=== PATIENT | female | born 1945 | race Caucasian/White ===

== ENCOUNTER 2020-05-25 15:28 | Inpatient (IN) | payer MEDICARE, OTHER ==
[~2020-05-25] VITALS: Ht 167.6 cm; Wt 102.0 kg
[2020-05-25 16:41] LABS: Basophils # (auto) 0.1 10 ^3/uL (0-0.2); Eosinophils # (auto) 0.1 10 ^3/uL (0-0.8); Eosinophils % (auto) 1.3 % (0.0-7.0); Hemoglobin 13.9 g/dL (12.2-16.2); Lymphocytes # (auto) 0.8 10 ^3/uL (0.4-5.4); Lymphocytes % (auto) 20.2 % (10.0-50.0); Mean Corpuscular Hemoglobin 30.8 pg (28.0-32.0); Mean Corpuscular Hgb Conc. 32.4 g/dL (32.0-36.0); Mean Corpuscular Volume 95.1 fL (80.0-100.0); Monocytes # (auto) 0.4 10 ^3/uL (0-1.3); Monocytes % (auto) 10.7 % (0.0-12.0); Neutrophils # (auto) 2.7 10 ^3/uL (1.6-8.6); Neutrophils % (auto) 65.8 % (37.0-80.0); Nucleated Red Blood Cells % 0.1 %; Platelet Count (auto) 153 10^3/uL (140-450); Red Blood Cells 4.52 10^6/uL (4.0-5.20); Red Cell Distribution Width 13.1 % (11.8-14.3); White Blood Cell 4.1 10^3/uL (4.4-10.8)
[2020-05-25 17:02] LABS: Albumin 3.4 g/dL (3.4-5.0); Magnesium 1.9 mg/dL (1.6-2.6); Potassium 3.8 mmol/L (3.5-5.1)
[2020-05-25 17:06] LABS: Calcium 8.6 mg/dL (8.5-10.1)
[2020-05-25 17:09] LABS: Bilirubin, Total 0.3 mg/dL (0.2-1.0); Total Protein 6.4 g/dL (6.4-8.2)
[2020-05-25] MEDS ORDERED: ENOXAPARIN SOD 100 MG/1 ML SYRINGE SC ONE (18:30)
[2020-05-25 18:47] LABS: INR 0.96 (0.9-1.15); Partial Thromboplastin Time 26.5 sec (23.0-31.2)
[2020-05-25 19:09] LABS: Urine Bacteria FEW /hpf (None Seen); Urine Blood Negative /uL (Negative); Urine Mucus FEW (None Seen); Urine Specific Gravity 1.008 (1.001-1.035); Urine WBC 12 /hpf (0 - 5)
[2020-05-25] MEDS ORDERED: ACETAMINOPHEN 325 MG TAB PO PRN (20:45)
[2020-05-25] MEDS ORDERED: ONDANSETRON HCL 4 MG/2 ML VIAL IV PRN (20:45)
[2020-05-25] MEDS ORDERED: NITROGLYCERIN 0.4 MG SL TAB SL PRN (20:45)
[2020-05-25] MEDS ORDERED: METOPROLOL TARTRATE 1MG/1ML-5ML VIAL IV PRN (20:45)
[2020-05-25] MEDS ORDERED: MORPHINE SULF INJ 2 MG/ML SYRINGE 1ML IV PRN (20:45)
[2020-05-25] MEDS: SODIUM CHLORIDE 0.9% 1,000 ML IV SCH (21:39)
[2020-05-25] MEDS: CARVEDILOL 3.125 MG TAB PO SCH (22:00)
[2020-05-25] MEDS: ATORVASTATIN 20 MG TAB PO SCH (22:00)
[2020-05-25 22:10] VITALS: BP 131/70
[2020-05-26 04:17] VITALS: BP 131/70
[2020-05-26 05:00] VITALS: BP 135/77
[2020-05-26] MEDS ORDERED: LEVO25TA6 PO (05:19)
[2020-05-26] MEDS ORDERED: [UNRECOGNIZED DRUG - CODE] (05:19)
[2020-05-26] MEDS ORDERED: PANT1INJ3 IV (05:19)
[2020-05-26] MEDS ORDERED: PROP80CA40 PO (05:19)
[2020-05-26] MEDS ORDERED: MONT10TA34 PO (05:19)
[2020-05-26] MEDS ORDERED: MELO1TAB56 PO (05:19)
[2020-05-26] MEDS ORDERED: GABA100C9 PO (05:19)
[2020-05-26] MEDS ORDERED: LIFI1DRO OP (05:19)
[2020-05-26] MEDS: ENOXAPARIN SOD 100 MG/1 ML SYRINGE SC SCH ×2 (06:22→17:35)
[2020-05-26 06:48] LABS: Basophils # (auto) 0.1 10 ^3/uL (0-0.2); Basophils % (auto) 2.3 % (0.0-2.0); Eosinophils # (auto) 0.1 10 ^3/uL (0-0.8); Eosinophils % (auto) 1.4 % (0.0-7.0); Hematocrit 42.7 % (36.0-46.0); Hemoglobin 13.9 g/dL (12.2-16.2); Lymphocytes % (auto) 23.3 % (10.0-50.0); Mean Corpuscular Hemoglobin 30.8 pg (28.0-32.0); Mean Corpuscular Hgb Conc. 32.4 g/dL (32.0-36.0); Mean Corpuscular Volume 94.8 fL (80.0-100.0); Monocytes # (auto) 0.4 10 ^3/uL (0-1.3); Monocytes % (auto) 9.4 % (0.0-12.0); Neutrophils # (auto) 2.8 10 ^3/uL (1.6-8.6); Neutrophils % (auto) 63.6 % (37.0-80.0); Nucleated Red Blood Cells % 0.1 %; Platelet Count (auto) 159 10^3/uL (140-450); Red Blood Cells 4.51 10^6/uL (4.0-5.20); Red Cell Distribution Width 13.2 % (11.8-14.3); White Blood Cell 4.4 10^3/uL (4.4-10.8)
[2020-05-26 07:09] LABS: Potassium 3.6 mmol/L (3.5-5.1)
[2020-05-26 07:31] LABS: BUN/Creatinine Ratio 21.6; Calcium 8.6 mg/dL (8.5-10.1)
[2020-05-26 08:00] VITALS: BP 122/67
[2020-05-26] MEDS: SODIUM CHLORIDE 0.9% 1,000 ML IV SCH ×2 (09:26→23:15)
[2020-05-26] MEDS: ASPirin 81 mg TAB PO SCH (09:26)
[2020-05-26] MEDS: CARVEDILOL 3.125 MG TAB PO SCH ×2 (09:27→22:01)
[2020-05-26] MEDS: CLOPIDOGREL BISULFATE 75 MG TAB PO SCH (09:27)
[2020-05-26] MEDS: DOCUSATE SOD 100 MG CAP PO SCH (09:27)
[2020-05-26] MEDS: LISINOPRIL 10 MG TAB PO SCH (09:27)
[2020-05-26 12:00] VITALS: BP 117/66
[2020-05-26] MEDS ORDERED: ZOLMITRIPTAN 2.5 MG PO ONE (13:45)
[2020-05-26 17:00] VITALS: BP 143/82
[2020-05-26 22:00] VITALS: BP 151/84
[2020-05-26] MEDS: ATORVASTATIN 20 MG TAB PO SCH (22:00)
[2020-05-26] MEDS: CIPROFLOXACIN HCL 500 MG TAB PO SCH (22:01)
[2020-05-27 05:00] VITALS: BP 136/83
[2020-05-27] MEDS: ENOXAPARIN SOD 100 MG/1 ML SYRINGE SC SCH ×2 (05:23→17:44)
[2020-05-27 05:47] LABS: Basophils # (auto) 0 10 ^3/uL (0-0.2); Eosinophils # (auto) 0 10 ^3/uL (0-0.8); Eosinophils % (auto) 0.9 % (0.0-7.0); Hematocrit 41.7 % (36.0-46.0); Hemoglobin 13.8 g/dL (12.2-16.2); Lymphocytes % (auto) 20.7 % (10.0-50.0); Mean Corpuscular Hemoglobin 31.3 pg (28.0-32.0); Mean Corpuscular Hgb Conc. 33.2 g/dL (32.0-36.0); Mean Corpuscular Volume 94.4 fL (80.0-100.0); Monocytes # (auto) 0.5 10 ^3/uL (0-1.3); Monocytes % (auto) 10.5 % (0.0-12.0); Neutrophils # (auto) 3.1 10 ^3/uL (1.6-8.6); Neutrophils % (auto) 66.9 % (37.0-80.0); Nucleated Red Blood Cells % 0.1 %; Platelet Count (auto) 144 10^3/uL (140-450); Red Blood Cells 4.42 10^6/uL (4.0-5.20); Red Cell Distribution Width 13.1 % (11.8-14.3); White Blood Cell 4.7 10^3/uL (4.4-10.8)
[2020-05-27 06:08] LABS: Calcium 8.7 mg/dL (8.5-10.1); Potassium 3.5 mmol/L (3.5-5.1)
[2020-05-27 06:17] LABS: BUN/Creatinine Ratio 19.6
[2020-05-27 09:00] VITALS: BP 142/85
[2020-05-27] MEDS: CLOPIDOGREL BISULFATE 75 MG TAB PO SCH (10:00)
[2020-05-27] MEDS: CARVEDILOL 3.125 MG TAB PO SCH ×2 (10:00→22:00)
[2020-05-27] MEDS: ASPirin 81 mg TAB PO SCH (10:11)
[2020-05-27] MEDS: CIPROFLOXACIN HCL 500 MG TAB PO SCH ×2 (10:11→22:07)
[2020-05-27] MEDS: DOCUSATE SOD 100 MG CAP PO SCH (10:12)
[2020-05-27] MEDS: LISINOPRIL 10 MG TAB PO SCH (10:12)
[2020-05-27] MEDS ORDERED: LIDOCAINE W/ EPINEPHRINE 2% INJ 20ML VIAL ONE (11:54)
[2020-05-27] MEDS ORDERED: fentaNYL CITRATE 100 MCG/2 ML VL ONE (11:55)
[2020-05-27] MEDS ORDERED: ANGIOMAX 250 MG VIAL IV ONE (11:55)
[2020-05-27] MEDS ORDERED: MIDAZOLAM HCL 1MG/1ML-2 ML VIAL ONE (11:55)
[2020-05-27] MEDS ORDERED: SODIUM CHL 0.9% 0 ML ONE (11:56)
[2020-05-27] MEDS ORDERED: LIDOCAINE 2%HCL (LOCAL ANESTH.) INJ 20ML MDV ONE (11:57)
[2020-05-27] MEDS ORDERED: IODIXANOL 320MG/ML 100ML BTL IV ONE (12:03)
[2020-05-27] MEDS: SODIUM CHLORIDE 0.9% 1,000 ML IV SCH (12:35)
[2020-05-27] MEDS ORDERED: diphenhdrAMINE HCL 50 MG/1 ML VL ONE (13:27)
[2020-05-27 16:37] VITALS: BP 146/90
[2020-05-27] MEDS: ATORVASTATIN 20 MG TAB PO SCH (22:00)
[2020-05-27 23:16] VITALS: BP 100/57
[2020-05-28] MEDS: SODIUM CHLORIDE 0.9% 1,000 ML IV SCH (01:24)
[2020-05-28 05:27] VITALS: BP 148/77
[2020-05-28] MEDS: ENOXAPARIN SOD 100 MG/1 ML SYRINGE SC SCH (05:36)
[2020-05-28 06:29] LABS: Basophils # (auto) 0.1 10 ^3/uL (0-0.2); Eosinophils # (auto) 0.1 10 ^3/uL (0-0.8); Eosinophils % (auto) 1.2 % (0.0-7.0); Hemoglobin 13.6 g/dL (12.2-16.2); Lymphocytes # (auto) 0.9 10 ^3/uL (0.4-5.4); Lymphocytes % (auto) 18.5 % (10.0-50.0); Mean Corpuscular Volume 94.3 fL (80.0-100.0); Monocytes # (auto) 0.5 10 ^3/uL (0-1.3); Monocytes % (auto) 10.8 % (0.0-12.0); Neutrophils # (auto) 3.2 10 ^3/uL (1.6-8.6); Neutrophils % (auto) 67.5 % (37.0-80.0); Platelet Count (auto) 130 10^3/uL (140-450); Red Blood Cells 4.25 10^6/uL (4.0-5.20); Red Cell Distribution Width 13.1 % (11.8-14.3); White Blood Cell 4.8 10^3/uL (4.4-10.8)
[2020-05-28 06:43] LABS: BUN/Creatinine Ratio 21.3; Calcium 8.7 mg/dL (8.5-10.1); Potassium 3.6 mmol/L (3.5-5.1)
[2020-05-28 09:00] VITALS: BP 134/79
[2020-05-28] MEDS: DOCUSATE SOD 100 MG CAP PO SCH (10:00)
[2020-05-28] MEDS: LISINOPRIL 10 MG TAB PO SCH (10:00)
[2020-05-28] MEDS: ASPirin 81 mg TAB PO SCH (10:00)
[2020-05-28] MEDS: CARVEDILOL 3.125 MG TAB PO SCH (10:00)
[2020-05-28] MEDS: CLOPIDOGREL BISULFATE 75 MG TAB PO SCH (10:00)
[2020-05-28] MEDS: CIPROFLOXACIN HCL 500 MG TAB PO SCH (10:00)
[2020-05-28 13:00] VITALS: BP 134/84
[2020-05-28 14:09] VITALS: BP 134/79
== END 2020-05-28 15:00 | disposition home or self-care (01) | DRG 282 ==
LOC: ER 15:28 → TELE 15:29 → TELE-CENTR 22:10
PROVIDERS: ADMIT Hospitalist; ATTEND Internal Medicine
PROC: 4A023N7 Measurement of Cardiac Sampling and Pressure, Left Heart, Percutaneous Approach (ICD-10-PCS; principal; 2020-05-27)
PROC: B211YZZ Fluoroscopy of Multiple Coronary Arteries using Other Contrast (ICD-10-PCS; 2020-05-27)
PROC: B215YZZ Fluoroscopy of Left Heart using Other Contrast (ICD-10-PCS; 2020-05-27)
DX: I21.4 Non-ST elevation (NSTEMI) myocardial infarction (principal); I10 Essential (primary) hypertension; E78.5 Hyperlipidemia, unspecified; I25.10 Atherosclerotic heart disease of native coronary artery without angina pectoris; J44.9 Chronic obstructive pulmonary disease, unspecified; G43.909 Migraine, unspecified, not intractable, without status migrainosus; I73.9 Peripheral vascular disease, unspecified; E78.00 Pure hypercholesterolemia, unspecified; E66.01 Morbid (severe) obesity due to excess calories; E03.9 Hypothyroidism, unspecified; I25.2 Old myocardial infarction; Z88.0 Allergy status to penicillin; Z90.49 Acquired absence of other specified parts of digestive tract; Z68.36 Body mass index [BMI] 36.0-36.9, adult; Z79.899 Other long term (current) drug therapy
CPT/HCPCS: 36415; 71045; 80048; 80053; 80061; 81001; 83735; 83880; 84443; 84484; 85025; 85379; 85610; 85730; 87086; 93005; 99152; 99153; G0378; J2250; Q9967

== ENCOUNTER 2021-07-09 06:53 | Emergency (ER) | payer MEDICARE, OTHER ==
[~2021-07-09] VITALS: Ht 167.6 cm; Wt 99.8 kg
[~2021-07-09 06:53] MED LIST: GABA100C9 PO; LEVO25TA6 PO; LIFI5DRO2 OP; MELO1TAB56 PO; MONT-8 PO; PANT1INJ3 IV; PROP80CA40 PO; [UNRECOGNIZED DRUG - CODE]
[2021-07-09 08:26] LABS: Basophils # (auto) 0.1 10 ^3/uL (0-0.2); Basophils % (auto) 0.5 % (0.0-2.0); Eosinophils # (auto) 0.1 10 ^3/uL (0-0.8); Eosinophils % (auto) 0.6 % (0.0-7.0); Hemoglobin 15.2 g/dL (12.2-16.2); Lymphocytes # (auto) 1.1 10 ^3/uL (0.4-5.4); Lymphocytes % (auto) 9.8 % (10.0-50.0); Mean Corpuscular Hemoglobin 30.1 pg (28.0-32.0); Mean Corpuscular Hgb Conc. 33.7 g/dL (32.0-36.0); Mean Corpuscular Volume 89.5 fL (80.0-100.0); Monocytes # (auto) 0.8 10 ^3/uL (0-1.3); Monocytes % (auto) 6.7 % (0.0-12.0); Neutrophils # (auto) 9.4 10 ^3/uL (1.6-8.6); Neutrophils % (auto) 82.4 % (37.0-80.0); Red Blood Cells 5.03 10^6/uL (4.0-5.20); Red Cell Distribution Width 14.3 % (11.8-14.3); White Blood Cell 11.4 10^3/uL (4.4-10.8)
[2021-07-09 08:27] LABS: Urine Bacteria FEW /hpf (None Seen); Urine Blood 3+ /uL (Negative); Urine Specific Gravity 1.007 (1.001-1.035); Urine WBC 1 /hpf (0 - 5)
[2021-07-09] MEDS ORDERED: SODIUM CHLORIDE 0.9% 1,000 ML IV ONE ×2 (08:30)
[2021-07-09] MEDS ORDERED: KETOROLAC TROMETH 30 MG/ML 1ML VIAL IV ONE (08:30)
[2021-07-09 08:39] LABS: Albumin 3.5 g/dL (3.4-5.0); Calcium 9.1 mg/dL (8.5-10.1); Potassium 4.9 mmol/L (3.5-5.1)
[2021-07-09 08:42] LABS: BUN/Creatinine Ratio 29.3
[2021-07-09 08:44] LABS: Bilirubin, Total 0.5 mg/dL (0.2-1.0)
[2021-07-09 09:19] VITALS: BP 170/92
[2021-07-09] MEDS ORDERED: HYDROcodone-ACET 10/325MG TAB PO ONE (09:45)
== END 2021-07-09 11:08 | disposition home or self-care (01) ==
LOC: ER 06:53
DX: N20.0 Calculus of kidney (principal); Z90.49 Acquired absence of other specified parts of digestive tract; Z88.0 Allergy status to penicillin
CPT/HCPCS: 36415; 74176; 80053; 81001; 85025; 96360; 99284; J1885; J7030

== ENCOUNTER 2022-03-11 11:22 | Emergency (ER) | payer MEDICARE, OTHER ==
[~2022-03-11] VITALS: Ht 160 cm; Wt 99.8 kg
[2022-03-11 12:07] LABS: Basophils # (auto) 0.1 10 ^3/uL (0-0.2); Basophils % (auto) 0.6 % (0.0-2.0); Eosinophils # (auto) 0 10 ^3/uL (0-0.8); Eosinophils % (auto) 0.5 % (0.0-7.0); Hematocrit 41.4 % (36.0-46.0); Hemoglobin 13.2 g/dL (12.2-16.2); Lymphocytes # (auto) 0.9 10 ^3/uL (0.4-5.4); Lymphocytes % (auto) 9.9 % (10.0-50.0); Mean Corpuscular Hemoglobin 27.9 pg (28.0-32.0); Mean Corpuscular Hgb Conc. 31.8 g/dL (32.0-36.0); Mean Corpuscular Volume 87.7 fL (80.0-100.0); Monocytes # (auto) 0.5 10 ^3/uL (0-1.3); Neutrophils # (auto) 7.3 10 ^3/uL (1.6-8.6); Red Blood Cells 4.71 10^6/uL (4.0-5.20); Red Cell Distribution Width 15.1 % (11.8-14.3); White Blood Cell 8.7 10^3/uL (4.4-10.8)
[2022-03-11 12:23] LABS: Albumin 3.6 g/dL (3.4-5.0); BUN/Creatinine Ratio 26.2; Calcium 8.5 mg/dL (8.5-10.1)
[2022-03-11 12:25] LABS: Bilirubin, Total 0.4 mg/dL (0.2-1.0); Total Protein 6.5 g/dL (6.4-8.2)
[2022-03-11 15:22] VITALS: BP 145/79
[2022-03-11] MEDS ORDERED: HYDR-4902 PO (15:53)
== END 2022-03-11 16:11 | disposition home or self-care (01) ==
LOC: EDBD 11:22 → ER 11:22
DX: S90.32XA Contusion of left foot, initial encounter (principal); S90.31XA Contusion of right foot, initial encounter; Z88.0 Allergy status to penicillin; Z90.49 Acquired absence of other specified parts of digestive tract; Z90.710 Acquired absence of both cervix and uterus; W18.39XA Other fall on same level, initial encounter; Y93.01 Activity, walking, marching and hiking; Y92.89 Other specified places as the place of occurrence of the external cause; Y99.8 Other external cause status
CPT/HCPCS: 36415; 73620; 74176; 80053; 84484; 85025; 93005

== ENCOUNTER 2025-02-25 09:47 | Inpatient (IN) | payer MEDICARE, OTHER ==
[~2025-02-25] VITALS: Ht 165.1 cm; Wt 107.5 kg
[~2025-02-25 09:47] MED LIST changes: +GABA-1308 PO; -GABA100C9 PO; +HYDR-4902 PO; +MELO15TA29 PO; -MELO1TAB56 PO
[2025-02-25 10:49] LABS: Basophils # (auto) 0.1 10 ^3/uL (0-0.2); Eosinophils # (auto) 0.1 10 ^3/uL (0-0.8); Hemoglobin 12.2 g/dL (12.2-16.2); Monocytes # (auto) 0.4 10 ^3/uL (0-1.3)
[2025-02-25 10:51] LABS: Basophils % (auto) 2.3 % (0.0-2.0); Eosinophils % (auto) 1.7 % (0.0-7.0); Hematocrit 37.6 % (36.0-46.0); Lymphocytes # (auto) 0.9 10 ^3/uL (0.4-5.4); Lymphocytes % (auto) 20.9 % (10.0-50.0); Mean Corpuscular Hemoglobin 24.4 pg (28.0-32.0); Mean Corpuscular Hgb Conc. 32.4 g/dL (32.0-36.0); Mean Corpuscular Volume 75.2 fL (80.0-100.0); Neutrophils % (auto) 66.1 % (37.0-80.0); Nucleated Red Blood Cells % 0.1 %; Platelet Count (auto) 165 10^3/uL (140-450); Red Cell Distribution Width 18.8 % (11.8-14.3); White Blood Cell 4.5 10^3/uL (4.4-10.8)
[2025-02-25 10:54] LABS: Potassium 4.5 mmol/L (3.5-5.1); Sodium 145 mmol/L (136-145)
[2025-02-25 10:55] LABS: Anion Gap 8 (5-15); Carbon Dioxide 28 mmol/L (20-31)
[2025-02-25 10:56] LABS: Calcium 9.5 mg/dL (8.7-10.4)
[2025-02-25 11:00] LABS: BUN/Creatinine Ratio 16.4 (10.0-20.0); Blood Urea Nitrogen 11 mg/dL (9-23); Glucose 88 mg/dL (74-106)
[2025-02-25 11:01] LABS: Chloride 109 mmol/L (98-107)
--- NOTE | 2025-02-25 11:03 | ED.PDOC ---
History of Present Illness HPI Comments 79-year-old female presents to the ER with prior medical history of kidney stones, [place], thyroid; surgical history hernias repair, hysterectomy, cataract surgery, gastric bypass, right foot surgery and the chief complaint of flank pain. Patient reports on having right flank pain for one month was been worseni ng for the past three weeks. Patient notes the her urination is slow. Denies chills, fever, N/V/D, SOB, CP. No other associated symptoms, modifiers, recent injuries or sick contacts present at this time. Chief Complaint: Flank Pain Time Seen by MD: 10:25 Primary Care Provider: Chirag Reviewed Notes: Nurses Notes, Medications, Allergies Allergies: Coded Allergies: Penicillins (Verified Allergy, Unknown, 05/25/20) Home Meds Active Scripts Hydrocodone-Acetaminophen (Hydrocodone Bitartrate/AC 5-325 mg) 1 Tab Tab, 1 TAB PO Q6HP PRN for 5 Days, #20 TAB Prov:SIOMARA SAENZ MD 03/11/22 Reported Medications Zolmitriptan (Zomig) 2.5 Mg Spr, 2.5 MG NA, SPRAY 05/26/20 Lifitegrast (Xiidra) 5 % Maxim, 5 % OP BID, DROP 05/26/20 Montelukast Sodium (MONTELUKAST SODIUM) 10 Mg Tab, 1 TAB PO DAILY, #30 TAB 5 Refills 05/26/20 Levothyroxine Sodium (Levothyroxine Sodium) 25 Mcg Tab, 25 MCG PO QAM, MCG 05/26/20 Gabapentin (Gabapentin) 100 Mg Cap, 100 MG PO BID for 30 Days, MG 05/26/20 Meloxicam (Meloxicam) 15 Mg Tab, 1 TAB PO DAILY, #30 TAB 2 Refills 05/26/20 Pantoprazole Sodium (PANTOPRAZOLE SODIUM) 40 Mg Inj, 40 MG IV DAILY, INJ 05/26/20 Propranolol Hcl (Inderal La) 80 Mg Cap, 0.5 CAP PO DAILY, #90 CAP 1 Refill 05/26/20 Information Source: Patient Mode of Arrival: Ambulatory Severity: Moderate Timing: Weeks Duration: Since onset Prehospital treatment: None Past Medical History PAST MEDICAL HISTORY: Kidney Stones, [place], Thyroid Surgical History: Cholecystectomy, Hernia Repair, Hysterectomy Surgical History (Other): Cataracts surgery, gastric bypass, right foot surgery STEAM PRESS OPERATOR History: No Pertinent STEAM PRESS OPERATOR History Family History Family History: Reviewed,noncontributory to illness, Unknown Social History Smoker: Non-Smoker Alcohol: Denies ETOH Use Drugs: Denies Drug Use Lives In: Home Constitutional: denies: chills, diaphoresis, fatigue, fever, malaise, sweats, weakness, others EENTM: denies: blurred vision, double vision, ear bleeding, ear discharge, ear drainage, ear pain, ear ringing, eye pain, eye redness, hearing loss, mouth pain, mouth swelling, nasal discharge, nose bleeding, nose congestion, nose pain, photophobia, tearing, throat pain, throat swelling, voice changes, others Respiratory: denies: cough, hemoptysis, orthopnea, SOB at rest, shortness of breath, SOB with excertion, stridor, wheezing, others Cardiovascular: denies: chest pain, dizzy spells, diaphoresis, Dyspnea on exertion, edema, irregular heart beat, left arm pain, lightheadedness, palpitations, PND, syncope, others Gastrointestinal: denies: abdomen distended, abdominal pain, blood streaked bowels, constipated, diarrhea, dysphagia, difficulty swallowing, hematemesis, melena, nausea, poor appetite, poor fluid intake, rectal bleeding, rectal pain, vomiting, others Genitourinary: reports: flank pain; denies: abnormal vagina bleeding, burning, dyspareunia, dysuria, frequency, hematuria, incontinence, pain, , vagina discharge, urgency, others Neurological: denies: dizziness, fainting, headache, left sided numbness, left sided weakness, numbness, paresthesia, pre-existing deficit, right sided numbness, right sided weakness, seizure, speech problems, tingling, tremors, weakness, others Musculoskeletal: denies: back pain, gout, joint pain, joint swelling, muscle pain, muscle stiffness, neck pain, others Integumetry: denies: bruises, change in color, change in hair/nails, dryness, laceration, lesions, lumps, rash, wounds, others Allergic/Immunocompromised: denies: Difficulty Healing, Frequent Infections, Hives, Itching, others Hematologic/Lymphatic: denies: anemia, blood clots, easy bleeding, easy bruising, swollen glands, others Endocrine: denies: excessive hunger, excessive sweating, excessive thirst, excessive urination, flushing, intolerance to cold, intolerance to heat, un explained weight gain, unexplained weight loss, others Psychiatric: denies: anxiety, bipolar disorder, depression, hopeless, panic disorder, schizophrenia, sleepless, suicidal, others All Other Systems: Reviewed and Negative Physical Exam General Appearance: No Apparent Distress, Normal HEENT: Normal ENT Inspection, Pharynx Normal, TMs Normal Neck: Full Range of Motion, Non-Tender, Normal, Normal Inspection Respiratory: Chest Non-Tender, Lungs Clear, No Accessory Muscle Use, No Respiratory Distress, Normal Breath Sounds Cardiovascular: No Edema, No JVD, No Murmur, No Gallop, Normal Peripheral Pu lses, Regular Rate/Rhythm Breast Exam: Deferred Gastrointestinal: No Organomegaly, Non Tender, No Pulsatile Mass, Normal Bowel Sounds, Soft Genitalia: Deferred Pelvic: Deferred Rectal: Deferred Extremities: No calf tenderness, Normal capillary refill, Normal inspection, Normal range of motion, Non-tender, No pedal edema Musculoskeletal : Apperance: Normal Neurologic: Alert, electric crane operator II-XII nml as Tested, No Motor Deficits, Normal Affect, Normal Mood, No Sensory Deficits Cerebellar Function: Normal Reflexes: Normal Skin: Dry, Normal Color, Warm Lymphatic: No Adenopathy Was a procedure done? Was a procedure done?: No Differential Dx Considerations may include: Renal colic, viral syndrome, pyelonephritis, sciatica, X-Ray, Labs, Meds, VS Vital Signs Date Time Temp Pulse Resp B/P (MAP) Pulse Ox O2 Delivery O2 Flow Rate FiO2 02/25/25 11:50 98.7 73 18 154/94 (114) 96 98.7 02/25/25 09:50 99.3 82 16 130/95 (107) 96 99.3 02/25/25 09:50 99.3 82 16 130/95 (107) 96 99.3 Lab Test 02/25/25 10:25 02/25/25 10:00 Range/Units White Blood Count 4.5 4.4-10.8 10^3/uL Red Blood Count 5.00 4.0-5.20 10^6/uL Hemoglobin 12.2 12.2-16.2 g/dL Hematocrit 37.6 36.0-46.0 % Mean Corpuscular Volume 75.2 L 80.0-100.0 fL Mean Corpuscular Hemoglobin 24.4 L 28.0-32.0 pg Mean Corpuscular Hemoglobin Concent 32.4 32.0-36.0 g/dL Red Cell Distribution Width 18.8 H 11.8-14.3 % Platelet Count 165 140-450 10^3/uL Mean Platelet Volume 8.1 6.9-10.8 fL Neutrophils (%) (Auto) 66.1 37.0-80.0 % Lymphocytes (%) (Auto) 20.9 10.0-50.0 % Monocytes (%) (Auto) 9.0 0.0-12.0 % Eosinophils (%) (Auto) 1.7 0.0-7.0 % Basophils (%) (Auto) 2.3 H 0.0-2.0 % Neutrophils # (Auto) 3.0 1.6-8.6 10 ^3/uL Lymphocytes # (Auto) 0.9 0.4-5.4 10 ^3/uL Monocytes # (Auto) 0.4 0-1.3 10 ^3/uL Eosinophils # (Auto) 0.1 0-0.8 10 ^3/uL Basophils # (Auto) 0.1 0-0.2 10 ^3/uL Nucleated Red Blood Cells 0.1 % Sodium Level 145 136-145 mmol/L Potassium Level 4.5 3.5-5.1 mmol/L Chloride Level 109 H 98-107 mmol/L Carbon Dioxide Level 28 20-31 mmol/L Anion Gap 8 5-15 Blood Urea Nitrogen 11 9-23 mg/dL Creatinine 0.67 0.550-1.02 mg/dL Glomerular Filtration Rate Calc 90 >90 mL/min BUN/Creatinine Ratio 16.4 10.0-20.0 Serum Glucose 88 74-106 mg/dL Calcium Level 9.5 8.7-10.4 mg/dL Troponin I High Sensitivity < 3 L </=34 ng/L Urine Color Colorless Yellow Urine Clarity Clear Clear Urine pH 7.0 5.0-9.0 Urine Specific [place] 1.004 1.001-1.035 Urine Protein Negative Negative Urine Ketones Negative Negative Urine Blood Negative Negative /uL Urine Nitrite Negative Negative Urine Bilirubin Negative Negative Urine Urobilinogen Normal Negative mg/dL Urine Leukocyte Esterase Negative Negative /uL Urine RBC <1 0 - 4 /hpf Urine Microscopic WBC < 1 0-5 /HPF Urine Squamous Epithelial Cells None seen <5 /hpf Urine Bacteria Few H None Seen /hpf Urine Glucose Normal Normal mg/dL Time of 1ST Reevaluation: 10:55 Reevaluation 1ST: Unchanged Patient Education/Counseling: Diagnosis, Treatment, Prognosis Family Education/Counseling: No Family Present Departure 1 Departure Time of Disposition: 13:10 (Patient presented with abdominal pain that was concerning for possible appendicits, gastritis, cholecystitis, colitis, gastroenteritis, sbo, or orther possible surgical emergency. Data: 1. I ordered and reviewed the result of at least 3 labs including a CBC, BMP, and Urinalysis. 2. I independently interpreted the following tests: CT Abdoment and Pelvis is concerning for renal colic and possible liver malignancy.Risk:This patient has a high risk of morbidity due to further diagnostic testing or treatment and may suffer from an acute abdominal process disorder. Workup reveals renal colic and possible liver malignancy and patient should be admitted for further workup. and possible expert consultation. ) Impression: Primary Impression: Renal colic on right side Additional Impressions: Right flank pain Abnormal liver CT Intractable abdominal pain Disposition: ADMITTED INPATIENT Admit to: Med Surg Condition: Serious Critical Care Note Critical Care Time?: Yes Critical care comment: Intractable abdominal pain Authorized and Performed by: Armando Gardner MD Total critical care time: Approximately 37 minutes Due to a high probability of clinically significant, life threatening deterioration, the patient required my highest level of preparedness to intervene emergently and I personally spent this critical care time directly and personally managing the patient. This critical care time included obtaining a history; examining the patient; pulse oximetry; ordering and review of studies; arranging urgent treatment with development of a management plan; evaluation of patient's response to treatment; frequent reassessment; and, discussions with other providers. This critical care time was performed to assess and manage the high probability of imminent, life-threatening deterioration that could result in multi-organ failure. It was exclusive of separately billable procedures and treating other patients and teaching time. Please see my other sections and the rest of the note for further information on patient assessment and treatment. Stability Stability form required: No I personally scribed for ARMANDO GARDNER MD ([email or web address]) on 02/25/25 at 11:03. Electronically submitted by Sujit Perez ([email or web address]). ARMANDO GARDNER MD Feb 25, 2025 11:03
[2025-02-25 11:07] LABS: Urine Bacteria FEW /hpf (None Seen); Urine Blood Negative /uL (Negative); Urine Clarity Clear (Clear); Urine Color Colorless (Yellow); Urine Protein, UAD Negative (Negative); Urine Specific Gravity 1.004 (1.001-1.035); Urine Squamous Epithelial Cell None Seen /hpf (<5); Urine Urobilinogen Normal (Negative); Urine WBC < 1 /HPF (0-5)
--- NOTE | 2025-02-25 12:55 | DVH ---
Indication: right sided flank pain Technique: CT axial images of the abdomen and pelvis are obtained without contrast. Coronal and sagit chalo reformats were obtained. Comparison: 03/11/2022 FINDINGS: There is limited interpretation of the abdomen and pelvis without administration of intravenous contr ast. Lung bases demonstrate atelectasis. Adrenal glands, spleen and pancreas unremarkable in shape. Liver is demonstrating right hepatic lobe hypodense region measuring 2.7 cm. The bilateral kidneys demonstrate no hydronephrosis. Nonobstructing right renal calculi up to 2 mm. Nonobstructing left renal calculi up 4 mm. Postsurgical changes stomach / gastrojejunostomy. Stomach nondistended. Small bowel loops are sheridan l in caliber. Colonic diverticular disease. Moderate volume stool in the colon. No secondary signs fo r appendicitis. Atherosclerotic disease. Bladder partially distended. No free pelvic fluid. No inguinal lymphadenopa thy. Moderate to severe lumbar degenerative disc disease. Vertebroplasty changes at L1, L2. IMPRESSION: 1. Indeterminate right hepatic lobe hypodense lesion, 2.7 cm. Recommend multiphasic MRI abdomen in th e nonemergent setting to further characterize. 2. Bilateral nonobstructing renal calculi. Largest is in the left kidney measuring 4 mm. 3. Colonic diverticulosis. 4. Findings as described.
[2025-02-25] MEDS ORDERED: MORPHINE SULFATE INJ 2 MG/ml SYRG IV PRN ×2 (14:30→15:15)
[2025-02-25] MEDS ORDERED: ACETAMINOPHEN 325 MG TAB PO PRN (14:30)
[2025-02-25] MEDS ORDERED: hydrALAZINE HCL 20 MG/ML VL IV PRN (14:30)
[2025-02-25] MEDS ORDERED: ONDANSETRON HCL 4 MG/2 ML VIAL IV PRN (14:30)
[2025-02-25] MEDS ORDERED: DOCUSATE SOD 100 MG CAP PO PRN (14:30)
[2025-02-25] MEDS: ONDANSETRON HCL 4 MG/2 ML VIAL IV ONE (14:44)
[2025-02-25] MEDS: SODIUM CHLORIDE 0.9% 1,000 ML IV ONE (14:45)
[2025-02-25] MEDS: MORPHINE SULFATE 4 MG/ML SYR/VIAL IV ONE (14:45)
--- NOTE | 2025-02-25 15:04 | DVHHP2 ---
History of Present Illness Reason for Visit: Right flank pain History of Present Illness The patient is a 79 years old female with past medical history of kidney stones, [place], and thyroid disease who presented to [facility] with complaint of right flank pain for the past 1 month. Patient reports experiencing symptoms with decreased urine output for the past three weeks, intractable abdominal pain, getting worse today that prompted this visit. Patient was seen and evaluated in the ED, laboratory data shows WBC 4.5, platelets 165, sodium 145, potassium 4.5, BUN 11, creatinine 0.67, glucose 88, troponin 3, blood pressure 154/94, heart rate 72, temperature 98.7 F, O2 saturation 96% on room air. Abdomen/pelvis CT revealing indeterminate right hepatic lobe hypodense lesion, 2.7 cm; bilateral nonobstructing renal calculi, largest is in the right kidney measuring 4 mm. Patient was given IV morphine sulfate 4 mg x 1, please see medication orders section in the computer. On my assessment, patient denies chest pain, no headache, no dizziness, no shortness of breath, no abdominal pain, no dysuria, no nausea, no vomiting, no fever, no chills. Patient was admitted for further evaluation and medical management. Past Medical History Kidney Stones, [place], Thyroid Past Surgical History Cholecystectomy, Hernia Repair, Hysterectomy, Cataracts surgery, Gastric bypass, Right foot surgery Family History Reviewed, noncontributory to the management of this case. Past Social History The patient lives at home, denies smoking, alcohol or illicit drugs abuse. Review of Systems Constitutional: Yes: Weakness; No: Fever, Chills, Sweats, Malaise, Other Eyes: No: Pain, Vision change, Conjunctivae inflammation, Eyelid inflammation, Other, Redness ENT: No: Ear pain, Ear discharge, Nose pain, Nose discharge, Nose congestion, Mouth pain, Mouth swelling, Throat pain, Throat swelling, Other Respiratory: No: Cough, Dry, Shortness of breath, SOB with excertion, Wheezing, Hemoptysis, Pleuritic Pain, Sputum, Wheezing, Other Cardiovascular: No: Chest Pain, Palpitations, Orthopnea, Paroxysmal Noc. Dyspnea, Edema, Lt Headedness, Other Gastrointestinal: Abdominal Pain; No: Nausea, Vomiting, Diarrhea, Constipation, Melena, Hematochezia, Other Genitourinary: No Dysuria, No Frequency, No Incontinence, No Hematuria, No Retention; Other (Right flank pain) Musculoskeletal: No: other, neck pain, shoulder pain, arm pain, back pain, hand pain, leg pain, foot pain Skin: No: Rash, Lesions, Jaundice, Bruising, Other Neurological: No: Weakness, Numbness, Incoordination, Change in speech, Confusion, Seizures, Other Allergies: Coded Allergies: Penicillins (Verified Allergy, Unknown, 05/25/20) Medications Current Medications Medications Dose Ordered Sig/Jean-Paul Route Start Time Stop Time Status Last Admin Dose Admin Levothyroxine Sodium 25 mcg QAM@0600 PO 02/26/25 06:00 UNV Hydralazine HCl 10 mg Q6HP PRN IV 02/25/25 14:30 UNV Sodium Chloride 10 ml Q8HR IV 02/25/25 22:00 UNV Acetaminophen/ Hydrocodone Bitart 1 tab Q4HP PRN PO 02/25/25 14:30 UNV Ondansetron HCl 4 mg Q4HP PRN IV 02/25/25 14:30 UNV Docusate Sodium 100 mg BIDPRN PRN PO 02/25/25 14:30 UNV Acetaminophen 650 mg Q6HP PRN PO 02/25/25 14:30 UNV Morphine Sulfate 2 mg Q4HPRN PRN IV 02/25/25 14:30 UNV Exam Vital Signs Vital Signs Date Time Temp Pulse Resp B/P (MAP) Pulse Ox O2 Delivery O2 Flow Rate FiO2 02/25/25 14:45 81 16 156/98 02/25/25 11:50 98.7 96 98.7 General Appearance: Alert, Oriented X3, Cooperative, No acute distress HEENT: Atraumatic, PERRLA, EOMI, Mucous membr. moist/pink Respiratory: Clear to auscultation, Normal air movement Cardiovascular: Regular rate, Normal S1, Normal S2, No murmurs Abdominal: Normal bowel sounds, Soft, No hepatospenomegaly, No masses, Other (Reports tenderness) Extremities: No clubbing, No cyanosis, No edema, Normal pulses, No tenderness/swelling Skin: No rashes, No breakdown, No significant lesion Neuro: Normal speech, Normal tone, Sensation intact, Cranial nerves 3-12 NL, Reflexes 2+, Other (Generalized weakness) Psych/Mental Status: Mental status NL, Mood NL Labs/Xrays Labs Test 02/25/25 14:26 6/9/25 10:25 02/25/25 10:00 Range/Units Thyroid Stimulating Hormone (TSH) 2.77 0.55-4.78 uIU/mL White Blood Count 4.5 4.4-10.8 10^3/uL Red Blood Count 5.00 4.0-5.20 10^6/uL Hemoglobin 12.2 12.2-16.2 g/dL Hematocrit 37.6 36.0-46.0 % Mean Corpuscular Volume 75.2 L 80.0-100.0 fL Mean Corpuscular Hemoglobin 24.4 L 28.0-32.0 pg Mean Corpuscular Hemoglobin Concent 32.4 32.0-36.0 g/dL Red Cell Distribution Width 18.8 H 11.8-14.3 % Platelet Count 165 140-450 10^3/uL Mean Platelet Volume 8.1 6.9-10.8 fL Neutrophils (%) (Auto) 66.1 37.0-80.0 % Lymphocytes (%) (Auto) 20.9 10.0-50.0 % Monocytes (%) (Auto) 9.0 0.0-12.0 % Eosinophils (%) (Auto) 1.7 0.0-7.0 % Basophils (%) (Auto) 2.3 H 0.0-2.0 % Neutrophils # (Auto) 3.0 1.6-8.6 10 ^3/uL Lymphocytes # (Auto) 0.9 0.4-5.4 10 ^3/uL Monocytes # (Auto) 0.4 0-1.3 10 ^3/uL Eosinophils # (Auto) 0.1 0-0.8 10 ^3/uL Basophils # (Auto) 0.1 0-0.2 10 ^3/uL Nucleated Red Blood Cells 0.1 % Sodium Level 145 136-145 mmol/L Potassium Level 4.5 3.5-5.1 mmol/L Chloride Level 109 H 98-107 mmol/L Carbon Dioxide Level 28 20-31 mmol/L Anion Gap 8 5-15 Blood Urea Nitrogen 11 9-23 mg/dL Creatinine 0.67 0.550-1.02 mg/dL Glomerular Filtration Rate Calc 90 >90 mL/min BUN/Creatinine Ratio 16.4 10.0-20.0 Serum Glucose 88 74-106 mg/dL Calcium Level 9.5 8.7-10.4 mg/dL Troponin I High Sensitivity < 3 L </=34 ng/L Urine Color Colorless Yellow Urine Clarity Clear Clear Urine pH 7.0 5.0-9.0 Urine Specific [place] 1.004 1.001-1.035 Urine Protein Negative Negative Urine Ketones Negative Negative Urine Blood Negative Negative /uL Urine Nitrite Negative Negative Urine Bilirubin Negative Negative Urine Urobilinogen Normal Negative mg/dL Urine Leukocyte Esterase Negative Negative /uL Urine RBC <1 0 - 4 /hpf Urine Microscopic WBC < 1 0-5 /HPF Urine Squamous Epithelial Cells None seen <5 /hpf Urine Bacteria Few H None Seen /hpf Urine Glucose Normal Normal mg/dL PATIENT: DARCI REEVES ACCT: [id number] UNIT: [id number] : 1945 LOC: ER ROOM / BED: / AGE / SEX: 79 / F ADM STATUS: REG ER SERVICE [id number] ORDERING PHYSICIAN: ARMANDO JAUREGUI MD PROCEDURE(s): ABPL - CT AB PEL WO CON-NO ORAL OR IV REASON: right sided flank pain ORDER NUMBER(s): [id number], ACCESSION NUMBER(s): [id number] Indication: right sided flank pain Technique: CT axial images of the abdomen and pelvis are obtained without contrast. Coronal and sagittal reformats were obtained. Comparison: 03/11/2022 FINDINGS: There is limited interpretation of the abdomen and pelvis without administration of intravenous contrast. Lung bases demonstrate atelectasis. Adrenal glands, spleen and pancreas unremarkable in shape. Liver is demonstrating right hepatic lobe hypodense region measuring 2.7 cm. The bilateral kidneys demonstrate no hydronephrosis. Nonobstructing right renal calculi up to 2 mm. Nonobstructing left renal calculi up 4 mm. Postsurgical changes stomach/gastrojejunostomy. Stomach nondistended. Small bowel loops are normal in caliber. Colonic diverticular disease. Moderate volume stool in the colon. No secondary signs for appendicitis. Atherosclerotic disease. Bladder partially distended. No free pelvic fluid. No inguinal lymphadenopathy. Moderate to severe lumbar degenerative disc disease. Vertebroplasty changes at L1, L2. IMPRESSION: 1. Indeterminate right hepatic lobe hypodense lesion, 2.7 cm. Recommend multiphasic MRI abdomen in the nonemergent setting to further characterize. 2. Bilateral nonobstructing renal calculi. Largest is in the left kidney measuring 4 mm. 3. Colonic diverticulosis. 4. Findings as described. Assessment/Plan Assessment/Plan Right flank pain Renal colic on right side Abnormal liver CT Intractable abdominal pain Generalized weakness Plan 1. Admit to med surge unit 2. Breathing treatment 3. Pain control management 4. Management of fluids and electrolytes 5. Consultation for Urology/hospitalist 6. Diagnostic tests abdomen/pelvis CT 7. DVT prophylaxis on SCDs 8. Repeat labs CBC, CMP in a.m. 9. Continue with current medical management 10. Treatment plan discussed with patient and RN. Patient verbalized understanding. Plan discussed with: Patient, Other (RN) My Orders Orders - KEISHA OLEA DNP Procedure Category Date Status Time Levothyroxine Tablet PHA 02/26/25 Logged (Synthroid Tablet) 06:00 Hydralazine Injection PHA 02/25/25 Logged (Apresoline Inject 14:30 Allergies ELANA 02/25/25 In Process 14:26 Code Status CODE 02/25/25 Transmitted 14:26 Sodium Chloride Lock PHA 02/25/25 Logged (Saline Lock Ns) 22:00 Oxygen Per Hour RT 02/25/25 Transmitted 14:26 Hydrocodone-Acet PHA 02/25/25 Logged 5/325mg Tab (Harper 14:30 Ondansetron Hcl PHA 02/25/25 Logged (Zofran) 14:30 Docusate Sodium PHA 02/25/25 Logged Capsule (Colace 14:30 Complete Blood Count LAB 02/26/25 Verified 04:00 Comprehensive LAB 02/26/25 Verified Metabolic Panel 04:00 Cardiac DIET 02/25/25 Transmitted Diet-2gna,Lofat,Lochol Dinner Condition: Serious ELANA 02/25/25 In Process 14:26 Acetaminophen Tablet PHA 02/25/25 Logged (Tylenol Tablet) 14:30 Bedrest With Bathroom ELANA 02/25/25 In Process Privileg 14:26 Morphine Sulfate PHA 02/25/25 Logged Injection 14:30 Sequential ELANA 02/25/25 In Process Compression Device Admit ADMIT 02/25/25 Verified 15:02 Nitroglycerin PHA 02/25/25 Verified Sublingual (Ntrostat 15:15 Morphine Sulfate PHA 02/25/25 Verified Injection 15:15 Notify Of Changes ELANA 02/25/25 Verified From Base 15:02 Emergency Dysrhythmia ELANA 02/25/25 Verified Protocol 15:02 Oxygen By Nasal RT 02/25/25 Verified Cannula 15:02 Problem List: (1) Right flank pain (2) Renal colic on right side (3) Abnormal liver CT (4) Intractable abdominal pain (5) Generalized weakness Date of Service: Feb 25, 2025 Billing Provider: KEISHA OLEA DNP Common Visit Codes: 25911-[id number] INP/OBS CARE (HIGH) KEISHA OLEA DNP Feb 25, 2025 15:03
[2025-02-25] MEDS ORDERED: NITROGLYCERIN 0.4 MG SL TAB SL PRN (15:15)
--- NOTE | 2025-02-25 16:54 | DVHINCON2 ---
Date of service: Feb 25, 2025 Referring Physician Hospitalist and ER staff Reason for Consultation Right flank pain Bilateral nephrolithiasis nonobstructing History of Present Illness Patient is known to urology service from prior evaluation in 2020 when she was recommended to undergo a cystoscopy with retrograde pyelogram and right ESWL for right flank pain due to nephrolithiasis. She did not proceed with the recommended procedure at that time. 79-year-old female presents to the ER with prior medical history of kidney stones, SD, thyroid; surgical history hernias repair, hysterectomy, cataract surgery, gastric bypass, right foot surgery and the chief complaint of flank pain. Patient reports on having right flank pain for one month was been worsening for the past three weeks. Patient notes the her urination is slow. Denies chills, fever, N/V/D, SOB, CP. No other associated symptoms, modifiers, recent injuries or sick contacts present at this time. Chief Complaint: Flank Pain Primary Care Provider: Chirag Reviewed Notes: Nurses Notes, Medications, Allergies Allergies: Coded Allergies: Penicillins (Verified Allergy, Unknown, 05/25/20) Home Meds Active Scripts Hydrocodone-Acetaminophen (Hydrocodone Bitartrate/AC 5-325 mg) 1 Tab Tab, 1 TAB PO Q6HP PRN for 5 Days, #20 TAB Prov:SIOMARA SAENZ MD 03/11/22 Reported Medications Zolmitriptan (Zomig) 2.5 Mg Spr, 2.5 MG NA, SPRAY 05/26/20 Lifitegrast (Xiidra) 5 % Maxim, 5 % OP BID, DROP 05/26/20 Montelukast Sodium (MONTELUKAST SODIUM) 10 Mg Tab, 1 TAB PO DAILY, #30 TAB 5 Refills 05/26/20 Levothyroxine Sodium (Levothyroxine Sodium) 25 Mcg Tab, 25 MCG PO QAM, MCG 05/26/20 Gabapentin (Gabapentin) 100 Mg Cap, 100 MG PO BID for 30 Days, MG 05/26/20 Meloxicam (Meloxicam) 15 Mg Tab, 1 TAB PO DAILY, #30 TAB 2 Refills 05/26/20 Pantoprazole Sodium (PANTOPRAZOLE SODIUM) 40 Mg Inj, 40 MG IV DAILY, INJ 05/26/20 Propranolol Hcl (Inderal La) 80 Mg Cap, 0.5 CAP PO DAILY, #90 CAP 1 Refill 05/26/20 Information Source: Patient Mode of Arrival: Ambulatory Severity: Moderate Timing: Weeks Duration: Since onset Prehospital treatment: None Past Medical History Kidney Stones, SD, Thyroid Past Surgical History Cholecystectomy, Hernia Repair, Hysterectomy Surgical History (Other): Cataracts surgery, gastric bypass, right foot surgery RADIOLOGY ASST History: No Pertinent RADIOLOGY ASST History Family History: Colon cancer G8 FATHER FH: congestive heart failure G8 MOTHER Allergies: Coded Allergies: Penicillins (Verified Allergy, Unknown, 05/25/20) Home Meds Active Scripts Hydrocodone-Acetaminophen (Hydrocodone Bitartrate/AC 5-325 mg) 1 Tab Tab, 1 TAB PO Q6HP PRN for 5 Days, #20 TAB Prov:SIOMARA SAENZ MD 03/11/22 Reported Medications Zolmitriptan (Zomig) 2.5 Mg Spr, 2.5 MG NA, SPRAY 05/26/20 Lifitegrast (Xiidra) 5 % Maxim, 5 % OP BID, DROP 05/26/20 Montelukast Sodium (MONTELUKAST SODIUM) 10 Mg Tab, 1 TAB PO DAILY, #30 TAB 5 Refills 05/26/20 Levothyroxine Sodium (Levothyroxine Sodium) 25 Mcg Tab, 25 MCG PO QAM, MCG 05/26/20 Gabapentin (Gabapentin) 100 Mg Cap, 100 MG PO BID for 30 Days, MG 05/26/20 Meloxicam (Meloxicam) 15 Mg Tab, 1 TAB PO DAILY, #30 TAB 2 Refills 05/26/20 Pantoprazole Sodium (PANTOPRAZOLE SODIUM) 40 Mg Inj, 40 MG IV DAILY, INJ 05/26/20 Propranolol Hcl (Inderal La) 80 Mg Cap, 0.5 CAP PO DAILY, #90 CAP 1 Refill 05/26/20 Current Medications Current Medications Medications (Trade) Dose Ordered Sig/Jean-Paul Route PRN Reason Start Time Stop Time Status Last Admin Levothyroxine Sodium (Synthroid Tablet) 25 mcg QAM@0600 PO 02/26/25 06:00 Hydralazine HCl (Apresoline Injection) 10 mg Q6HP PRN IV SBP>150 02/25/25 14:30 Sodium Chloride (Saline Lock Ns) 10 ml Q8HR IV 02/25/25 22:00 Acetaminophen/ Hydrocodone Bitart (Atmore 5/325MG Tab) 1 tab Q4HP PRN PO MODERATE PAIN (4-6 PAIN SCALE) 02/25/25 14:30 Ondansetron HCl (Zofran) 4 mg Q4HP PRN IV NAUSEA / VOMITING 02/25/25 14:30 Docusate Sodium (Colace Capsule) 100 mg BIDPRN PRN PO FOR CONSTIPATION 02/25/25 14:30 Acetaminophen (Tylenol Tablet) 650 mg Q6HP PRN PO PAIN SCALE 1-3 OR TEMP>100.4 02/25/25 14:30 Morphine Sulfate 2 mg Q4HPRN PRN IV SEVERE PAIN (7-10 PAIN SCALE) 02/25/25 14:30 Nitroglycerin (Ntrostat Sublingual) 0.4 mg Q5MINP PRN SL FOR CHEST PAIN 02/25/25 15:15 Morphine Sulfate 2 mg Q30M PRN IV FOR CHEST PAIN 02/25/25 15:15 Review of Systems Constitutional: denies: chills, diaphoresis, fatigue, fever, malaise, sweats, weakness, others EENTM: denies: blurred vision, double vision, ear bleeding, ear discharge, ear drainage, ear pain, ear ringing, eye pain, eye redness, hearing loss, mouth pain, mouth swelling, nasal discharge, nose bleeding, nose congestion, nose pain, photophobia, tearing, throat pain, throat swelling, voice changes, others Respiratory: denies: cough, hemoptysis, orthopnea, SOB at rest, shortness of breath, SOB with excertion, stridor, wheezing, others Cardiovascular: denies: chest pain, dizzy spells, diaphoresis, Dyspnea on exertion, edema, irregular heart beat, left arm pain, lightheadedness, palpit ations, PND, syncope, others Gastrointestinal: denies: abdomen distended, abdominal pain, blood streaked b owels, constipated, diarrhea, dysphagia, difficulty swallowing, hematemesis, melena, nausea, poor appetite, poor fluid intake, rectal bleeding, rectal pain, vomiting, others Genitourinary: reports: flank pain; denies: abnormal vagina bleeding, burning, dyspareunia, dysuria, frequency, hematuria, incontinence, pain, , vagina discharge, urgency, others Neurological: denies: dizziness, fainting, headache, left sided numbness, left sided weakness, numbness, paresthesia, pre-existing deficit, right sided numbness, right sided weakness, seizure, speech problems, tingling, tremors, weakness, others Musculoskeletal: denies: back pain, gout, joint pain, joint swelling, muscle pain, muscle stiffness, neck pain, others Integumetry: denies: bruises, change in color, change in hair/nails, dryness, laceration, lesions, lumps, rash, wounds, others Allergic/Immunocompromised: denies: Difficulty Healing, Frequent Infections, Hives, Itching, others Hematologic/Lymphatic: denies: anemia, blood clots, easy bleeding, easy bruising, swollen glands, others Endocrine: denies: excessive hunger, excessive sweating, excessive thirst, excessive urination, flushing, intolerance to cold, intolerance to heat, unexplained weight gain, unexplained weight loss, others Psychiatric: denies: anxiety, bipolar disorder, depression, hopeless, panic disorder, schizophrenia, sleepless, suicidal, others All Other Systems: Reviewed and Negative Vital Signs Vital Signs Date Time Temp Pulse Resp B/P (MAP) Pulse Ox O2 Delivery O2 Flow Rate FiO2 02/25/25 16:00 79 02/25/25 16:00 14 167/72 (103) 97 02/25/25 11:50 98.7 98.7 Physical Exam General Appearance: No Apparent Distress, Normal HEENT: Normal ENT Inspection, Pharynx Normal, TMs Normal Neck: Full Range of Motion, Non-Tender, Normal, Normal Inspection Respiratory: Chest Non-Tender, Lungs Clear, No Accessory Muscle Use, No Respiratory Distress, Normal Breath Sounds Cardiovascular: No Edema, No JVD, No Murmur, No Gallop, Normal Peripheral Pulses, Regular Rate/Rhythm Breast Exam: Deferred Gastrointestinal: No Organomegaly, Non Tender, No Pulsatile Mass, Normal Bowel Sounds, Soft Genitalia: Deferred Pelvic: Deferred Rectal: Deferred Extremities: No calf tenderness, Normal capillary refill, Normal inspection, Normal range of motion, Non-tender, No pedal edema Musculoskeletal : Apperance: Normal Neurologic: Alert, welfare supervisor II-XII nml as Tested, No Motor Deficits, Normal Affect, Normal Mood, No Sensory Deficits Cerebellar Function: Normal Reflexes: Normal Skin: Dry, Normal Color, Warm Lymphatic: No Adenopathy Labs/Diagnostic Data Labs Test 02/25/25 14:26 02/25/25 10:25 02/25/25 10:00 Range/Units Thyroid Stimulating Hormone (TSH) 2.77 0.55-4.78 uIU/mL White Blood Count 4.5 4.4-10.8 10^3/uL Red Blood Count 5.00 4.0-5.20 10^6/uL Hemoglobin 12.2 12.2-16.2 g/dL Hematocrit 37.6 36.0-46.0 % Mean Corpuscular Volume 75.2 L 80.0-100.0 fL Mean Corpuscular Hemoglobin 24.4 L 28.0-32.0 pg Mean Corpuscular Hemoglobin Concent 32.4 32.0-36.0 g/dL Red Cell Distribution Width 18.8 H 11.8-14.3 % Platelet Count 165 140-450 10^3/uL Mean Platelet Volume 8.1 6.9-10.8 fL Neutrophils (%) (Auto) 66.1 37.0-80.0 % Lymphocytes (%) (Auto) 20.9 10.0-50.0 % Monocytes (%) (Auto) 9.0 0.0-12.0 % Eosinophils (%) (Auto) 1.7 0.0-7.0 % Basophils (%) (Auto) 2.3 H 0.0-2.0 % Neutrophils # (Auto) 3.0 1.6-8.6 10 ^3/uL Lymphocytes # (Auto) 0.9 0.4-5.4 10 ^3/uL Monocytes # (Auto) 0.4 0-1.3 10 ^3/uL Eosinophils # (Auto) 0.1 0-0.8 10 ^3/uL Basophils # (Auto) 0.1 0-0.2 10 ^3/uL Nucleated Red Blood Cells 0.1 % Sodium Level 145 136-145 mmol/L Potassium Level 4.5 3.5-5.1 mmol/L Chloride Level 109 H 98-107 mmol/L Carbon Dioxide Level 28 20-31 mmol/L Anion Gap 8 5-15 Blood Urea Nitrogen 11 9-23 mg/dL Creatinine 0.67 0.550-1.02 mg/dL Glomerular Filtration Rate Calc 90 >90 mL/min BUN/Creatinine Ratio 16.4 10.0-20.0 Serum Glucose 88 74-106 mg/dL Calcium Level 9.5 8.7-10.4 mg/dL Troponin I High Sensitivity < 3 L </=34 ng/L Urine Color Colorless Yellow Urine Clarity Clear Clear Urine pH 7.0 5.0-9.0 Urine Specific [place] 1.004 1.001-1.035 Urine Protein Negative Negative Urine Ketones Negative Negative Urine Blood Negative Negative /uL Urine Nitrite Negative Negative Urine Bilirubin Negative Negative Urine Urobilinogen Normal Negative mg/dL Urine Leukocyte Esterase Negative Negative /uL Urine RBC <1 0 - 4 /hpf Urine Microscopic WBC < 1 0-5 /HPF Urine Squamous Epithelial Cells None seen <5 /hpf Urine Bacteria Few H None Seen /hpf Urine Glucose Normal Normal mg/dL PATIENT: DARCI REEVES ACCT: [id number] UNIT: [id number] : 1945 LOC: ER ROOM / BED: / AGE / SEX: 79 / F ADM STATUS: REG ER SERVICE [id number] ORDERING PHYSICIAN: ARMANDO JAUREGUI MD PROCEDURE(s): ABPL - CT AB PEL WO CON-NO ORAL OR IV REASON: right sided flank pain ORDER NUMBER(s): [id number], ACCESSION NUMBER(s): [id number] Indication: right sided flank pain Technique: CT axial images of the abdomen and pelvis are obtained without contrast. Coronal and sagittal reformats were obtained. Comparison: 03/11/2022 FINDINGS: There is limited interpretation of the abdomen and pelvis without administration of intravenous contrast. Lung bases demonstrate atelectasis. Adrenal glands, spleen and pancreas unremarkable in shape. Liver is demonstrating right hepatic lobe hypodense region measuring 2.7 cm. The bilateral kidneys demonstrate no hydronephrosis. Nonobstructing right renal calculi up to 2 mm. Nonobstructing left renal calculi up 4 mm. Postsurgical changes stomach / gastrojejunostomy. Stomach nondistended. Small bowel loops are normal in caliber. Colonic diverticular disease. Moderate volume stool in the colon. No secondary signs for appendicitis. Atherosclerotic disease. Bladder partially distended. No free pelvic fluid. No inguinal lymphadenopathy. Moderate to severe lumbar degenerative disc disease. Vertebroplasty changes at L1, L2. IMPRESSION: 1. Indeterminate right hepatic lobe hypodense lesion, 2.7 cm. Recommend multiphasic MRI abdomen in the nonemergent setting to further characterize. 2. Bilateral nonobstructing renal calculi. Largest is in the left kidney measuring 4 mm. 3. Colonic diverticulosis. 4. Findings as described. ATED BY: JONAS HUANG MD DICTATED DATE/TIME: 02/25/25 1253 SIGNED BY: JONAS HUANG MD SIGNED DATE/TIME: 02/25/25 1253 CC: Assessment Bilateral nephrolithiasis without any evidence of hydronephrosis Largest stone is 4 mm in the left upper pole Right flank pain Plan/Recommendation Patient's creatinine is normal No hydronephrosis reported Recommend pain management Cystoscopy with retrograde pyelogram and right extracorporeal shockwave lithotripsy to be scheduled as outpatient Plan discussed with: Patient, Spouse SUNIL GARCIA MD Feb 25, 2025 16:54
[2025-02-25 20:00] VITALS: BP 150/93; TEMP 98
[2025-02-25 21:11] VITALS: PULSE 91; RESP 20; O2SAT 100
[2025-02-25] MEDS: HYDROcodone-ACET 5/325MG TAB PO PRN (21:40)
[2025-02-25] MEDS: SODIUM CHLOR 0.9% PF (SALINE LOCK) 10ML VIAL/SYR IV SCH (21:44)
[2025-02-26] MEDS ORDERED: LEVOTHYROXINE SODIUM 25 MCG TAB PO SCH (06:00)
== END 2025-02-25 22:20 | disposition left against medical advice (07) | DRG 694 ==
LOC: ER 09:47 → OVERFLOW 15:02
PROVIDERS: ADMIT Nurse Practitioner Family; ATTEND Nurse Practitioner Family
DX: N20.0 Calculus of kidney (principal); Z53.29 Procedure and treatment not carried out because of patient's decision for other reasons; I25.2 Old myocardial infarction; Z88.0 Allergy status to penicillin; Z79.899 Other long term (current) drug therapy; Z90.49 Acquired absence of other specified parts of digestive tract; Z98.84 Bariatric surgery status; Z90.710 Acquired absence of both cervix and uterus; Z82.49 Family history of ischemic heart disease and other diseases of the circulatory system; Z80.0 Family history of malignant neoplasm of digestive organs
CPT/HCPCS: 36415; 74176; 80048; 81001; 84443; 84484; 85025; 96361; 96374; 96375; 99291; G0378; J2405